=== PATIENT | male | born 1985 | race Caucasian/White ===

== ENCOUNTER 2018-01-27 08:11 | Emergency (ER) | payer BC ==
[2018-01-27 08:19] VITALS: BP 155/79
--- NOTE | 2018-01-27 09:12 | UC ---
Shortness of Breath HPI - HPI Summary HPI Summary: Sudden chest pain in the middle of the night that is pleuritic and associated with sob. He has no prior medical care. he is a smoker. He has had some congestion and cough this prior week. - History of Current Complaint Chief Complaint: UCRespiratory Stated Complaint: TROUBLE BREATHING Time Seen by Provider: 01/27/18 08:25 Hx Obtained From: Patient Onset/Duration: Sudden Onset, Lasting Hours Timing: Constant Current Severity: Severe Dyspnea At: Rest Aggrevating Factors: Deep Breaths Alleviating Factors: Nothing Associated Signs & Symptoms: Positive: Cough (Nonproductive), Chest Pain w/ Cough. Negative: Fever, Chills, Diaphoresis, Calf Pain/Swelling, Edema - Allergy/Home Medications Allergies/Adverse Reactions: Allergies Allergy/AdvReac Type Severity Reaction Status Date / Time No Known Allergies Allergy Verified 01/27/18 08:19 Home Medications: Home Medications NK [No Home Medications Reported] 01/27/18 [History Confirmed 01/27/18] PMH/Surg Hx/FS Hx/Imm Hx Previously Healthy: No - obesity. smoker. - Surgical History Surgical History: None - Family History Known Family History: Positive: Other - Father had heart disease and mother has cancer. - Social History Occupation: Employed Full-time Alcohol Use: Rare Substance Use Type: None Smoking Status (MU): Heavy Every Day Tobacco Smoker Type: Cigarettes Review of Systems Respiratory: Shortness Of Breath, Cough Cardiovascular: Chest Pain All Other Systems Reviewed And Are Negative: Yes Physical Exam Triage Information Reviewed: Yes Appearance: Pain Distress, Obese Vital Signs: Initial Vital Signs Temp 97.4 F 01/27/18 08:13 Pulse 110 01/27/18 08:13 Resp 22 01/27/18 08:13 BP 155/79 01/27/18 08:13 Pulse Ox 95 01/27/18 08:13 Vital Signs Reviewed: Yes Eyes: Positive: Conjunctiva Clear ENT: Positive: Normal ENT inspection Neck: Positive: Supple, Nontender, No Lymphadenopathy Respiratory: Positive: Respiratory distress, Decreased breath sounds Cardiovascular: Positive: Tachycardia Abdomen Description: Negative: Guarding Musculoskeletal: Positive: ROM Intact Neurological: Positive: Alert, Muscle Tone Normal. Negative: Fatigued Psychological: Positive: Age Appropriate Behavior Skin: Negative: rashes Shortness of Breath Dx - Course Course Of Treatment: We talked at length about possible etiologies. Regardless of cause, he is clearly struggling with sob, tachycardia and stenting his breathing due to pain. he does agree to go to ED but adamantly refuses transfer by ambulance due to possible cost even though I tell him insurance may cover this. He has been told in no uncertain terms that he runs the risk of sudden or worsening condition in route. Dr. Brownlee at [facility] accepts patient. Girlfriend is also aware of severity and agrees to drive him and make sure he gets care. - Differential Dx/Diagnosis Provider Diagnoses: chest pain. pleuritic pain. sob Discharge - Sign-Out/Discharge Documenting (check all that apply): Patient Departure - Discharge Plan Condition: Guarded Disposition: AGAINST MEDICAL ADVICE Referrals: No Primary Care Phys,NOPCP [Primary Care Provider] - - Billing Disposition and Condition Condition: GUARDED Disposition: Against Medical Advice
== END 2018-01-27 08:49 | disposition left against medical advice (07) ==
LOC: UCCORT 08:11
DX: R07.81 Pleurodynia (principal); R06.02 Shortness of breath; E66.9 Obesity, unspecified; F17.210 Nicotine dependence, cigarettes, uncomplicated
CPT/HCPCS: 93005; 99202; G0463